=== PATIENT | male | born 1960 | race Caucasian/White ===

== ENCOUNTER → 2023-10-17 | Outpatient (CLI) | payer BC ==
--- NOTE | 2023-10-17 09:00 | CT ---
EXAMINATION TYPE: CT cervical spine wo con CT DLP: 713.3 mGycm, Automated exposure control for dose reduction was used. DATE OF EXAM: 10/17/2023 8:49 AM COMPARISON: None. CLINICAL INDICATION:Male, 63 years old with history of M54.12 RADICULOPATHY, CERVICAL REGION; PHH, Ra diculopathy, cervical region TECHNIQUE: Axial CT images from the skull base to the inferior aspect of T2 we obtained without intra venous contrast. Coronal and sagittal reformatted images were also reviewed. Contrast used: mL of , (if blank None) Oral contrast used: (if blank None) FINDINGS: Fracture: None. Osseous structures: Multilevel degenerative disc disease changes with endplate spurring and disc oste ophyte complex's. Vertebral alignment: Grade 1 anterolisthesis of C4 on C5. Spinal canal/Neural Foramina: Disc osteophyte complexes at C5-C6 and C6-C7 with at least mild to mode rate spinal canal stenosis. Facet joint uncovertebral joint arthropathy scattered throughout the cerv ical spine with varying degrees of neural foraminal stenosis. Neural foraminal stenosis worse at C3-C 4 with severe left, C4-C5 with moderate left and moderate to severe right and moderate to severe bila teral C5-C6 and C6-C7 and moderate bilateral C7-T1. Neck soft tissues: Prevertebral soft tissues are within normal limits. Other: The airway is patent. Groundglass opacities in the right upper lung From the pulmonary hilum towards the periphery. IMPRESSION: 1. No evidence of cervical spine fracture. 2. Moderate degenerative disc at C5 and C6 and C7 with at least [id number] spinal canal stenosi s.. 3. Ground glass opacities in the right upper lung correlate for atypical infection.
== END | disposition home or self-care (01) ==
LOC: RADCTMAIN 08:23
PROVIDERS: ATTEND Orthopaedic Surgery
DX: M50.122 Cervical disc disorder at C5-C6 level with radiculopathy (principal)
CPT/HCPCS: 72125

== ENCOUNTER → 2023-11-01 | Outpatient (CLI) | payer BC ==
[2023-11-01 09:52] VITALS: BP 142/78; PULSE 92; RESP 15; TEMP 98.2
--- NOTE | 2023-11-01 13:20 | P.PAINPG ---
PQRS Measure Charge Sheet Comment: HISTORY OF PRESENT ILLNESS: A 63 yr old male as a referral from Dr Pappas presents today w severe and chronic neck pain > 1 yr secondary to DDD, spondylosis and facet arthropathy without myelopathy for evaluation. Pt states pain level is provoked at 6 /10 in intensity, constant, localized in the cervical spine, predominantly axial, tingling in character w occasional shooting pain towards the R wrist. Pain is provoked by rotation and lateral flexion. Pain is alleviated by heat, ice, medications (Ibu), repositioning and rest . Cervical disability score at 23. PMH: OA, Hyperlipidemia PSH: Hernia Repair (1999) SH: +tobacco use, No ETOH abuse, No illicit drug use FH: DM All: See list Meds: See list REVIEW OF ORGAN SYSTEMS: CONSTITUTIONAL: No fevers or chills. No recent weight loss. NEUROLOGICAL: + numbness and tingling along the distal extremities. No seizure disorders or headaches. MUSCULOSKELETAL: + pain PSYCHIATRIC: Denies current depression or suicidal thoughts. Physical Examinations : Constitutional : Cooperative , not in acute distress . Neurologic : Cranial nerve II to XII intact. No focal neurological deficits. Psychiatric : alert & oriented x 3. Matching mood & appropriate affect. Judgment & insight intact. Musculoskeletal : Cervical Spine Motor strength in the deltoid and biceps: Normal right side. Normal Left side Motor strength biceps and the wrist extensors: Normal right side . Normal left side Motor strength in the triceps muscle: Normal right side. Normal left side Deep tendon reflexes: Normal at the biceps. Normal at Brachioradialis. Normal at triceps Vertebral body tenderness to deep palpation over Cervical facet loading test: positive bilaterally Spurling test: positive bilaterally Neck distraction test: positive bilaterally Jane sign: positive bilaterally Lumbar spine Motor strength lower extremities ,thigh and legs 5/5 Right side , 5/5 Left side Deep tendon reflexes : Normal Knee Jerk. Normal Ankle Jerk Vertebral body tenderness over Almonte Test positive Lumbar facet Loading Test: positive Right / positive Left Range of motion of the lumbar spine Flexion 30 degrees, extension 10 degrees Straight Leg Raise test: Left/ Right positive at degrees Yadira test: positive right / positive left. Severe tenderness over the Sacroiliac joint on the Right / Left sides Gaenslen test: positive bilaterally Seated flexion test: positive bilaterally. Sacral spine : Severe tenderness over the Sacroiliac joint: right side / left side Range of motion: Flexion of the lumbar spine <60 degrees Range of motion: Extension of the lumbar spine <20 degrees Gaenslen's Test positive Yadira test: positive right side / left side Thigh Thrust Test Sacral Thrust Test Imaging: CT non contrast of the cervical spine from 10/17/23 reviewed Assessment/ Plan : C4-C6 moderate stenosis, Cervical DDD Recommendation of physician guided home exercises, instructional packet provided. All questions answered. I have spent greater than 30 minutes on patient care today. Dr Salazar was available by phone for the evaluation of this patient. The time was used to review the medical records including relevant urine studies and Prescription history (MAPs), review of the available imaging, evaluation and examination of the patient, coordination of care with the medical staff and if applicable referring physicians, as well as creation of the medical record - Pain Location Bilateral Neck Non-Pharmacological Interventions: Heat, Ice, Inactivity, Position/Reposition Pharmacological Interventions: PRN Medication Controlled Substance Measures - Controlled Substance Measures Is patient prescribed a controlled substance at discharge?: No
== END ==
LOC: PNWHC3 08:52
PROVIDERS: ATTEND Specialist
DX: M50.10 Cervical disc disorder with radiculopathy, unspecified cervical region (principal); M47.22 Other spondylosis with radiculopathy, cervical region; M48.02 Spinal stenosis, cervical region; Z72.0 Tobacco use
CPT/HCPCS: 99211

== ENCOUNTER → 2023-12-13 | Outpatient (CLI) | payer BC ==
[2023-12-13 08:57] VITALS: BP 142/85; PULSE 57; RESP 16; TEMP 97.5
--- NOTE | 2023-12-13 13:57 | P.PAINPG ---
PQRS Measure Charge Sheet Comment: HISTORY OF PRESENT ILLNESS: A 63 yr old male presents today w severe and chronic neck pain > 1 yr secondary to DDD, spondylosis and facet arthropathy without myelopathy for evaluation. Pt states pain level is provoked at 6 /10 in intensity, constant, localized in the cervical spine, predominantly axial, tingling in character w occasional shooting pain towards the BL shoulders. Pain is provoked by rotation and lateral flexion. Pain is alleviated by PT x 8 wks which ended in Nov 2023, physician guided home exercises 5 times weekly since mid Nov 2023, heat, ice, medications, repositioning and rest . Cervical disability score at 23. Interventional procedures include Medications include Ibu REVIEW OF ORGAN SYSTEMS: CONSTITUTIONAL: No fevers or chills. No recent weight loss. NEUROLOGICAL: + numbness and tingling along the distal extremities. No seizure disorders or headaches. MUSCULOSKELETAL: + pain PSYCHIATRIC: Denies current depression or suicidal thoughts. Physical Examinations : Constitutional : Cooperative , not in acute distress . Neurologic : Cranial nerve II to XII intact. No focal neurological deficits. Psychiatric : alert & oriented x 3. Matching mood & appropriate affect. Judgment & insight intact. Musculoskeletal : Cervical Spine Motor strength in the deltoid and biceps: Normal right side. Normal Left side Motor strength biceps and the wrist extensors: Normal right side . Normal left side Motor strength in the triceps muscle: Normal right side. Normal left side Deep tendon reflexes: Normal at the biceps. Normal at Brachioradialis. Normal at triceps Vertebral body tenderness to deep palpation over C6 Almonte test positive BL C6-C7 Cervical facet loading test: positive bilaterally Spurling test: positive bilaterally Neck distraction test: positive bilaterally Jane sign: positive bilaterally Lumbar spine Motor strength lower extremities ,thigh and legs 5/5 Right side , 5/5 Left side Deep tendon reflexes : Normal Knee Jerk. Normal Ankle Jerk Vertebral body tenderness over Almonte Test positive Lumbar facet Loading Test: positive Right / positive Left Range of motion of the lumbar spine Flexion 30 degrees, extension 10 degrees Straight Leg Raise test: Left/ Right positive at degrees Yadira test: positive right / positive left. Severe tenderness over the Sacroiliac joint on the Right / Left sides Gaenslen test: positive bilaterally Seated flexion test: positive bilaterally. Sacral spine : Severe tenderness over the Sacroiliac joint: right side / left side Range of motion: Flexion of the lumbar spine <60 degrees Range of motion: Extension of the lumbar spine <20 degrees Gaenslen's Test positive Yadira test: positive right side / left side Thigh Thrust Test Sacral Thrust Test Imaging: CT non contrast of the cervical spine from 10/17/23 reviewed Assessment/ Plan : C4-C6 moderate stenosis, Cervical DDD Recommendation of NICOLE C6-C7 #1. May need a series of injections for optimal pain relief. Risks, benefits of procedure discussed and pt verbalized understanding. Protocol for discontinuation/ continuation of medications nydia procedure discussed. All questions answered. I have spent greater than 30 minutes on patient care today. Dr Salazar was available by phone for the evaluation of this patient. The time was used to review the medical records including relevant urine studies and Prescription history (MAPs), review of the available imaging, evaluation and examination of the patient, coordination of care with the medical staff and if applicable referring physicians, as well as creation of the medical record PQRS Narrative: Hx Alcohol Use (MH) Yes Controlled Substance Measures - Controlled Substance Measures Is patient prescribed a controlled substance at discharge?: No
== END ==
LOC: PNWHC3 08:20
PROVIDERS: ATTEND Specialist
DX: M50.323 Other cervical disc degeneration at C6-C7 level (principal); M48.02 Spinal stenosis, cervical region
CPT/HCPCS: 99211

== ENCOUNTER 2024-01-02 06:38 | Day surgery (SDC) | payer BC ==
[~2024-01-02 06:38] MED LIST: LACTATED RINGERS 1,000 ML IV SCH
[2024-01-02 06:56] VITALS: TEMP 97.5
[2024-01-02] MEDS ORDERED: IOPAMIDOL M300 15ML VIAL ONE (07:50)
[2024-01-02] MEDS ORDERED: DEXAMETHASONE SOD PHOSPHATE 10 MG/ML 1 ML VIAL ONE (07:50)
[2024-01-02] MEDS ORDERED: ROPIVACAINE 5MG/ML 20ML VIAL ONE (07:50)
--- NOTE | 2024-01-02 08:06 | P.PCN ---
Description of Procedure: PROCEDURE 1. Injection of radio contrast material into cervical epidural space, cervical epidurogram, interpretation of cervical epidurogram, Cervical epidural steroid injection under fluoroscopic guidance, C6-7 (fluoroscopy images available in the radiology department ) 2. Cervical epidurogram. PREOPERATIVE DIAGNOSIS: 1- Cervical Degenerative Disc Diseases 2- Cervical radiculopathy., 3-cervical spondylosis with cervical Facet arthropathy without myelopathy.4-cervical spinal stenosis POSTOPERATIVE DIAGNOSIS: : 1- Cervical Degenerative Disc Diseases , 2- Cervical radiculopathy. 3-,cervical spondylosis with cervical Facet arthropathy without myelopathy. 4-cervical spinal stenosis ANESTHESIA: Local anesthetics infiltration. In the OR continuous pulse ox, EKG, blood pressure and verbal communication was maintained. EBL : None PROCEDURE INDICATION: The patient with neck pain and radiculitis unresponsive to conservative treatment consents for procedure. Discussed the procedure, alternatives and possible complications which may include increased pain, infection, bleeding, nerve damage, paralysis all of which could be permanent. Patient understands and all questions were answered. PROCEDURE DESCRIPTION : After getting consent patient was taken to the OR , positioned in prone position and time out was completed. A pillow was placed under the patients chest to increase the cervical interlaminar space. The cervical area was prepped and draped in the usual sterile fashion. Using anterior-posterior fluoroscopy, interlaminar space was identified and the skin over this site was marked and then infiltrated with 1% lidocaine subcutaneously. Subsequently, a 20-gauge 3-1/2-inch Tuohy epidural needle was inserted and advanced toward the epidural space with the loss of resistance technique using a syringe filled with preservative-free normal saline and guided by AP and lateral fluoroscopy. Negative CSF, negative blood, negative paresthesia. The correct needle position in the epidural space was verified with the injection of 2 mL of the water soluble contrast dye [id number]-[id number] and observing an excellent epidurogram with the epidural spread of the dye, after repeat negative aspiration 3 mL solution was injected which consists of 1 mL of preservative-free normal saline mixed with 2 mL of 20 mg dexamethasone and a washout of epidurogram was seen. Needle was withdrawn intact, skin was cleansed, and bandages were applied. Disposition: Patient tolerated the procedure well. No complication. Patient was placed in supine position and transferred to the recovery room area in stable condition and there was no evidence of upper or lower extremity motor or sensory deficit after the procedure patient was discharged from recovery room after discharge criteria met and home discharge instructions was given by the staff and patient will follow with the pain clinic in 2-4 weeks
[2024-01-02 08:12] VITALS: RESP 16
[2024-01-02 08:23] VITALS: BP 160/93; PULSE 54
--- NOTE | 2024-01-02 08:33 | FL ---
Fluoroscopy History: NECK PAIN NECK PAIN
== END 2024-01-02 08:40 | disposition home or self-care (01) ==
LOC: ORPAIN 06:38
PROVIDERS: ATTEND Pain Medicine Interventional Pain Medicine
DX: M47.22 Other spondylosis with radiculopathy, cervical region (principal); M48.02 Spinal stenosis, cervical region; M50.123 Cervical disc disorder at C6-C7 level with radiculopathy; Z79.1 Long term (current) use of non-steroidal anti-inflammatories (NSAID)
CPT/HCPCS: 62321; J1100; Q9967; J2795

== ENCOUNTER → 2024-01-17 | Outpatient (CLI) | payer BC | LOC: PNWHC3 08:34 | PROVIDERS: ATTEND Specialist | DX: M47.22 Other spondylosis with radiculopathy, cervical region (principal) | CPT/HCPCS: 99211 ==

== ENCOUNTER 2024-03-12 07:03 | Day surgery (SDC) | payer BC ==
[2024-03-07 10:51] VITALS: BMI 33.0
[2024-03-12] MEDS ORDERED: LACTATED RINGERS 1,000 ML IV SCH (07:27)
[2024-03-12 07:31] VITALS: TEMP 97.3
[2024-03-12] MEDS ORDERED: ROPIVACAINE 5MG/ML 20ML VIAL ONE (08:10)
[2024-03-12] MEDS ORDERED: methylPREDNISolone ACETATE 40 MG/ML 1 ML VIAL ONE (08:10)
[2024-03-12] MEDS: IV FLUID CONTINUATION 1,000 ML IV ONE (08:14)
--- NOTE | 2024-03-12 08:16 | P.PCN ---
Date of Procedure: 03/12/24 Procedure(s) Performed: Procedure= trigger point injections cervical paraspinal muscles bilaterally , 4 on the right side from C2 to T2 , and 3 on the left side from C2 to T2 Preoperative diagnosis= 1-myofascial pain syndrome cervical paraspinal muscles. Postoperative diagnosis=Same as preop Diagnosis . Complication = none Condition= stable Anesthesia= none Indication for the procedure= patient complaining of low back pain , examination was positive for multiple trigger point in the cervical paraspinal muscles bilaterally and patient diagnosed with myofascial pain syndrome and is here to have trigger point injections Description of the procedure= procedure risk and benefits discussed with the patient, including but not limited, risk of infection and bleeding, and ALLERGIC reaction to the medication and not complete pain relief and patient agreed with the preceding patient taken to the operating room, placed in sitting position or standard monitors applied to the patient then after induction of anesthesia back prepped with chlorhexidine 3 times , then under sterile technique each of the trigger point that was marked in the preop holding area 4 on the right side cervical paraspinal muscles and 3 on the left side cervical paraspinal muscles each one of them injected with the 2 mL of the mixture of ropivacaine 0.5% 14 ML mixed with 40 mg of Depo-Medrol and 2 mL of the mixture injected at each trigger point after negative aspiration, using 25-gauge needle, injection done after negative aspiration under was no paresthesia during the injection patient tolerated the procedure well without any complications and he will follow up in the pain clinic in a few weeks
[2024-03-12 08:25] VITALS: RESP 18
[2024-03-12 08:37] VITALS: BP 128/75; PULSE 66
== END 2024-03-12 08:48 | disposition home or self-care (01) ==
LOC: ORPAIN 07:03
PROVIDERS: ATTEND Specialist
DX: M79.18 Myalgia, other site (principal); M50.30 Other cervical disc degeneration, unspecified cervical region
CPT/HCPCS: 20553

== ENCOUNTER → 2024-03-27 | Outpatient (CLI) | payer BC ==
[2024-03-27 08:34] VITALS: BP 149/92; PULSE 61; RESP 17; TEMP 98.2
--- NOTE | 2024-03-27 14:36 | P.PAINPG ---
PQRS Measure Charge Sheet Comment: HISTORY OF PRESENT ILLNESS: A 63 yr old male presents today w severe and chronic neck pain > 1 yr secondary to radiculopathy, spondylosis and facet arthropathy without myelopathy for evaluation s/p BL TPIs C2-T2 #1. Pt states he experienced > 50 % pain relief x 2 wks s/p procedure. Pt states pain level is provoked at 6 /10 in intensity, intermittent, localized in the cervical spine, predominantly axial, tingling in character w occasional shooting pain towards the BL shoulders. Pain is provoked by rotation and lateral flexion. Pain is alleviated by PT x 8 wks which ended in Nov 2023, physician guided home exercises 5 times weekly since mid Nov 2023, heat, ice, medications, repositioning and rest . Interventional procedures include NICOLE C6-C7 x1, BL TPIs C2-T2 x1 Medications include Ibu REVIEW OF ORGAN SYSTEMS: CONSTITUTIONAL: No fevers or chills. No recent weight loss. NEUROLOGICAL: + numbness and tingling along the distal extremities. No seizure disorders or headaches. MUSCULOSKELETAL: + pain PSYCHIATRIC: Denies current depression or suicidal thoughts. Physical Examinations : Constitutional : Cooperative , not in acute distress . Neurologic : Cranial nerve II to XII intact. No focal neurological deficits. Psychiatric : alert & oriented x 3. Matching mood & appropriate affect. Judgment & insight intact. Musculoskeletal : Cervical Spine Motor strength in the deltoid and biceps: Normal right side. Normal Left side Motor strength biceps and the wrist extensors: Normal right side . Normal left side Motor strength in the triceps muscle: Normal right side. Normal left side Deep tendon reflexes: Normal at the biceps. Normal at Brachioradialis. Normal at triceps Vertebral body tenderness to deep palpation over C6 Almonte test positive BL C6-C7 Taut bands w twitch response over BL C2-T2 Cervical facet loading test: positive bilaterally Spurling test: positive bilaterally Neck distraction test: positive bilaterally Jane sign: positive bilaterally Lumbar spine Motor strength lower extremities ,thigh and legs 5/5 Right side , 5/5 Left side Deep tendon reflexes : Normal Knee Jerk. Normal Ankle Jerk Vertebral body tenderness over Almonte Test positive Lumbar facet Loading Test: positive Right / positive Left Range of motion of the lumbar spine Flexion 30 degrees, extension 10 degrees Straight Leg Raise test: Left/ Right positive at degrees Yadira test: positive right / positive left. Severe tenderness over the Sacroiliac joint on the Right / Left sides Gaenslen test: positive bilaterally Seated flexion test: positive bilaterally. Sacral spine : Severe tenderness over the Sacroiliac joint: right side / left side Range of motion: Flexion of the lumbar spine <60 degrees Range of motion: Extension of the lumbar spine <20 degrees Gaenslen's Test positive Yadira test: positive right side / left side Thigh Thrust Test Sacral Thrust Test Imaging: CT non contrast of the cervical spine from 10/17/23 reviewed Assessment/ Plan : C4-C6 moderate stenosis, Cervical radiculopathy Recommendation of BL TPIs C2-T2 #2.Risks, benefits of procedure discussed and pt verbalized understanding. Protocol for discontinuation/ continuation of medications nydia procedure discussed. All questions answered. I have spent greater than 30 minutes on patient care today. Dr Salazar was available by phone for the evaluation of this patient. The time was used to review the medical records including relevant urine studies and Prescription history (MAPs), review of the available imaging, evaluation and examination of the patient, coordination of care with the medical staff and if applicable referring physicians, as well as creation of the medical record PQRS Narrative: Hx Alcohol Use (MH) Yes Home Medications: Ambulatory Orders Ibuprofen [Motrin Ib] 600 mg PO DIRECTED PRN 12/29/23 Controlled Substance Measures - Controlled Substance Measures Is patient prescribed a controlled substance at discharge?: No
== END ==
LOC: PNWHC3 08:07
PROVIDERS: ATTEND Specialist
DX: M54.12 Radiculopathy, cervical region
CPT/HCPCS: 99211

== ENCOUNTER 2024-04-12 06:34 | Day surgery (SDC) | payer BC ==
[2024-04-12 07:00] VITALS: TEMP 97.2
[2024-04-12] MEDS ORDERED: TRIAMCINOLONE ACETONIDE 40 MG/ML 1 ML VIAL ONE (07:35)
[2024-04-12] MEDS ORDERED: ROPIVACAINE 5MG/ML 20ML VIAL ONE (07:35)
--- NOTE | 2024-04-12 07:41 | P.PCN ---
Anesthesia: none Surgeon: Randa Ferreira Pathology: none sent Condition: stable Disposition: PACU Description of Procedure: Pre and postop diagnosis: Myofascial pain in the cervical , thoracic paravertebral musculatureand the trapezius muscles bilaterally. Procedure name: Trigger point injection Anesthesia :none Physician: Randa Ferreira MD Description of procedure: The patient was seen in preop holding area, consent was obtained, the trigger points were marked on skin. the patient was brought into the procedure room and placed in prone position. Skin was prepped with ChloraPrep and draped in a sterile manner. I used 25-gauge 1-1/2 inch needle to go through the skin and into the trigger points and injected 1 mL of ropivacaine 0.5% mixed with 40 mg of Kenalog in a solution of ....... MLS of ropivacaine 0.5% +40 mg of Kenalog. 1 mL of the solution was injected at each trigger point with a total of 10 trigger points injected in the paravertebral musculaturel of the cervical and upper thoracic spinebilaterally and in the trapezius muscles bilaterally . . Patient tolerated procedure well.
[2024-04-12 07:48] VITALS: RESP 16
[2024-04-12 08:00] VITALS: BP 131/79; PULSE 53
== END 2024-04-12 08:01 | disposition home or self-care (01) ==
LOC: ORPAIN 06:34
PROVIDERS: ATTEND Anesthesiology
DX: M79.18 Myalgia, other site (principal); I10 Essential (primary) hypertension; Z79.1 Long term (current) use of non-steroidal anti-inflammatories (NSAID)
CPT/HCPCS: 20553; J3301; J2795